=== PATIENT | female | born 1930 | race Caucasian/White ===

== ENCOUNTER 2017-08-08 13:03 | Outpatient (CLI) | payer MEDICARE ==
[2017-08-08] MEDS ORDERED: Iopamidol 370 76% 100 ML VIAL ONE (14:20)
--- NOTE | 2017-08-08 15:16 | CT ---
CT BRAIN WITH AND WITHOUT IV CONTRAST: Date: 08/08/17 HISTORY: New onset seizure, dementia. FINDINGS: There is ventricular sulcal prominence due to cortical atrophy. There are patchy areas of decreased attenuation in the periventricular white matter consistent with chronic small vessel ischemic diseas e. No evidence of acute infarct, hemorrhage, mass, midline shift, or abnormal extra-axial fluid monik ections are seen. No abnormal postcontrast enhancement is noted. 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 The basilar cisterns are patent. The bony calvarium is intact. The visua lized paranasal sinuses and mastoid air cells are well aerated. IMPRESSION: No CT evidence of acute intracranial process or mass. POS: [facility]
== END 2017-08-08 13:04 | disposition home or self-care (01) ==
LOC: CT 13:03
PROVIDERS: ATTEND Family Medicine
DX: R56.9 Unspecified convulsions (principal); R44.3 Hallucinations, unspecified
CPT/HCPCS: 70470

== ENCOUNTER 2017-10-14 18:54 | Emergency (ER) | payer MEDICARE ==
--- NOTE | 2017-10-14 19:46 | RAD ---
SUPINE ABDOMEN: 10/14/17 HISTORY: Assess PEG tube. FINDINGS/IMPRESSION: PEG tube is in place. Contrast has been injected and contrast opacifies the stomach. There is no extr avasation. Findings indicate adequate position of the PEG tube within the stomach. POS: [facility]
== END 2017-10-14 20:00 ==
LOC: ERS 18:54
DX: Z43.1 Encounter for attention to gastrostomy (principal)
CPT/HCPCS: 43760; 74018

== ENCOUNTER 2017-10-23 12:36 | Emergency (ER) | payer MEDICARE ==
--- NOTE | 2017-10-23 13:24 | RAD ---
AP PELVIS: Date: 10/23/17 HISTORY: Fall, trauma, back pain. FINDINGS/IMPRESSION: Bones are osteopenic. There are three screws through the proximal right femur and a left femoral head prosthesis in good position and alignment. No definite acute fracture or dislocation identified. The re are degenerative changes in the lower lumbar spine. POS: [facility]
[2017-10-23] MEDS ORDERED: Lorazepam 2 MG/ML VIAL ONE (13:30)
--- NOTE | 2017-10-23 15:12 | CT ---
CT LUMBAR SPINE WITHOUT CONTRAST: Date: 10/23/17 COMPARISON: None. HISTORY: Back pain. TECHNIQUE: Multiple contiguous axial images were obtained in a CT of the lumbar spine without contrast. Sagittal and coronal reformats were performed. FINDINGS: The vertebral bodies and intervertebral discs demonstrate normal height and alignment without fractur e or subluxation. Moderate degenerative changes are seen throughout the lumbar spine. There is no bony narrowing of the central canal. There appear to be disc bulges into the central raz l at L3-4 and L4-5 causing at least mild central canal stenosis at these levels. There is mild to mod erate narrowing of the neural foramina from L3-4 through L5-S1. Posterior facet arthrosis is seen thr oughout the lumbar spine, more prominent inferiorly. Atherosclerotic calcifications are seen in the aorta. The other prevertebral and paraspinal soft tiss ues are unremarkable. IMPRESSION: Moderate degenerative changes of the lumbar spine without acute osseous abnormality. POS: [facility]
--- NOTE | 2017-10-23 15:14 | CT ---
CT THORACIC SPINE WITHOUT CONTRAST: Date: 10/23/17 HISTORY: Pain. COMPARISON: None. FINDINGS: There are extensive air space opacities in both lower lobes suggesting pneumonia or aspiration. Heart size is enlarged. Dense calcification of the aorta. Pulmonary trunk is enlarged. Dense mitral annula r calcifications. Ascending aorta measures 3.5 cm. No displaced fracture of the visualized ribs. Thoracic spine is without acute fracture. IMPRESSION: 1. No acute fracture of the thoracic spine. 2. Extensive lower lobe air space opacities concerning for aspiration or infection. There are also o pacities within the right middle lobe. 3. Pulmonary arterial hypertension. A follow-up chest radiograph of the chest is recommended after treatment for pneumonia. POS: [facility]
== END 2017-10-23 16:20 | disposition home or self-care (01) ==
LOC: ERS 12:36
DX: M54.5 Low back pain (principal); M54.6 Pain in thoracic spine; W19.XXXA Unspecified fall, initial encounter
CPT/HCPCS: 72128; 72131; 72170; 96372; J2060